=== PATIENT | female | born 1960 | race African-American/Black ===

== ENCOUNTER 2023-12-28 17:06 | Inpatient (IN) | payer OTHER ==
[2023-12-28 18:27] VITALS: BMI 21.7
[2023-12-28] MEDS ORDERED: IBUPROFEN 400 MG TABLET (FP) PO PRN (20:17)
[2023-12-28] MEDS ORDERED: NALOXONE HCL (KLOXXADO) 8 MG SPRAY NS PRN (20:17)
[2023-12-28] MEDS ORDERED: LOPERAMIDE HCL 2 MG CAPSULE PO PRN (20:17)
[2023-12-28] MEDS ORDERED: POLYETHYLENE GLYCOL (HEALTHYLAX) 3350 17 GM PACKET PO PRN (20:17)
[2023-12-28] MEDS ORDERED: BISMUTH SUBSALICYLATE 524 MG/30 ML PO PRN (20:17)
[2023-12-28] MEDS ORDERED: BENZONATATE 200 MG CAPSULE PO PRN (20:17)
[2023-12-28] MEDS ORDERED: guaiFENesin 600 MG TABLET.ER (FP) PO PRN (20:17)
[2023-12-28] MEDS ORDERED: BENZOCAINE/MENTHOL (CHLORASEPTIC ) LOZENGE MM PRN (20:17)
[2023-12-28] MEDS ORDERED: NALOXONE HCL 0.4 MG/ML VIAL IM PRN (20:17)
[2023-12-28] MEDS ORDERED: MAGNESIUM HYDROX 2400MG/30ML ORAL SUSPENSION 30 ML CUP PO PRN (20:17)
[2023-12-28] MEDS ORDERED: ACETAMINOPHEN 325 MG TABLET (FP) PO PRN (20:17)
[2023-12-28] MEDS ORDERED: methaDONE HCL 10 MG TABLET (FOR DETOX USE ONLY) ONE (22:57)
[2023-12-28] MEDS: methaDONE HCL 10 MG TABLET (FOR DETOX USE ONLY) PO ONE (23:05)
[2023-12-29] MEDS: THIAMINE 100 MG TABLET PO SCH (01:47)
[2023-12-29] MEDS: MELATONIN 5 MG TABLETS PO SCH (01:47)
[2023-12-29] MEDS: NICOTINE POLACRILEX 2 MG GUM BUC PRN (02:29)
[2023-12-29] MEDS: cloNIDine HCL 0.1 MG TABLET PO PRN (09:59)
[2023-12-29] MEDS: PRENATAL VITAMINS W/ FOLIC ACID TABLET (FP) PO SCH (09:59)
[2023-12-29] MEDS: NICOTINE 14 MG/24 HOURS TOPICAL PATCH TD SCH (09:59)
[2023-12-29 11:45] LABS: HEMATOCRIT 34.9 % (32.4-45.2); HEMOGLOBIN 11.6 GM/dL (10.7-15.3); MCH 28.4 pg (25.7-33.7); MCHC 33.2 g/dl (32.0-36.0); MEAN CELL VOLUME 85.6 fl (80-96); MEAN PLT VOLUME 9.7 fl (7.5-11.1); PLATELET COUNT 220 10^3/uL (134-434); RBC 4.07 M/mm3 (3.60-5.2); RDW 14.5 % (11.6-15.6)
[2023-12-29 11:58] LABS: CHLORIDE 105 mmol/L (98-107); POTASSIUM 4.1 mmol/L (3.5-5.1); SODIUM 138 mmol/L (136-145)
[2023-12-29] MEDS: TOLNAFTATE 1% CREAM 15 GM TUBE TP SCH (12:01)
[2023-12-29 12:21] LABS: CALCIUM 9.5 mg/dL (8.5-10.1); GLUCOSE,RANDOM 92 mg/dL (74-106)
[2023-12-29 12:22] LABS: ALBUMIN 3.7 g/dl (3.4-5.0); ANION GAP 4 mmol/L (4-13); BLOOD UREA NITROGEN 10.6 mg/dL (7-18); CO2 29 mmol/L (21-32)
[2023-12-29 12:24] LABS: BILIRUBIN,TOTAL 0.4 mg/dL (0.2-1)
[2023-12-29 12:25] LABS: ALK PHOS 79 U/L (45-117); CREATININE 0.7 mg/dL (0.55-1.3); SGOT/AST 17 U/L (15-37); SGPT/ALT 21 U/L (13-61)
[2023-12-29] MEDS: ONDANSETRON *ODT* 4 MG TABLET SL PRN (18:33)
[2023-12-30] MEDS: methaDONE HCL 10 MG TABLET (FOR DETOX USE ONLY) PO ONE (10:21)
[2023-12-30] MEDS: MAG HYDROX/AL HYDROX/SIMETH 30 ML UNIT-DOSE CUP PO PRN (10:25)
[2023-12-30] MEDS: IBUPROFEN 600 MG TABLET (FP) PO PRN (19:17)
[2023-12-31] MEDS: TRIMETHOBENZAMIDE HCL 200MG/2ML INJ IM ONE (19:21)
[2023-12-31] MEDS: MELATONIN 5 MG TABLETS PO SCH (22:41)
[2024-01-01] MEDS: methaDONE HCL 10 MG TABLET (FOR DETOX USE ONLY) PO ONE (10:37)
[2024-01-01] MEDS: CYPROHEPTADINE HCL 4 MG TABLET PO SCH (11:30)
[2024-01-01] MEDS: QUEtiapine FUMARATE 25 MG TABLET PO SCH (22:26)
[2024-01-01] MEDS: TRIMETHOBENZAMIDE HCL 200MG/2ML INJ IM ONE (22:53)
[2024-01-02 09:02] VITALS: RESP 18
[2024-01-02 17:04] VITALS: BP 162/63; PULSE 53; TEMP 97.5
== END 2024-01-03 06:30 | disposition short-term general hospital (02) | DRG 897 ==
LOC: YASAS 17:06 → Y3N 12-29 02:04
PROVIDERS: ADMIT Allergy & Immunology; ATTEND Allergy & Immunology
PROC: HZ2ZZZZ Detoxification Services for Substance Abuse Treatment (ICD-10-PCS; principal; 2023-12-29)
DX: F11.23 Opioid dependence with withdrawal (principal); Z59.00 Homelessness unspecified; F17.210 Nicotine dependence, cigarettes, uncomplicated; F32.9 Major depressive disorder, single episode, unspecified; F43.10 Post-traumatic stress disorder, unspecified; G47.00 Insomnia, unspecified; R11.2 Nausea with vomiting, unspecified; Z85.030 Personal history of malignant carcinoid tumor of large intestine; K66.8 Other specified disorders of peritoneum; B35.3 Tinea pedis; B35.1 Tinea unguium; Z56.0 Unemployment, unspecified
CPT/HCPCS: 36415; 73610-TC-LT-FY; 80053; 80305; 80307; 85027; 86780; 93005; 93010; Q0162

== ENCOUNTER 2024-01-02 20:04 | Inpatient (IN) | payer OTHER ==
[2024-01-02] MEDS ORDERED: FAMOTIDINE 20 MG/50 ML IVPB 20 MG/50 ML MG IVPB ONE (21:25)
[2024-01-02] MEDS ORDERED: ONDANSETRON 4 MG/2 ML VIAL ONE (21:25)
[2024-01-02 21:55] LABS: BASO % 0.4 % (0-2.0); EOS % 0.1 % (0-4.5); HEMATOCRIT 44.2 % (32.4-45.2); HEMOGLOBIN 15.1 GM/dL (10.7-15.3); LYMPH % 14.9 % (8-40); MCH 29.2 pg (25.7-33.7); MCHC 34.1 g/dl (32.0-36.0); MEAN CELL VOLUME 85.5 fl (80-96); MEAN PLT VOLUME 9.3 fl (7.5-11.1); MONO % 5.4 % (3.8-10.2); NEUT % 79.2 % (42.8-82.8); PLATELET COUNT 218 10^3/uL (134-434); RBC 5.16 M/mm3 (3.60-5.2); RDW 14.2 % (11.6-15.6); WHITE BLOOD COUNT 8.5 K/mm3 (4.0-10.0)
[2024-01-02] MEDS: ONDANSETRON 4 MG/2 ML VIAL IVPUSH ONE (22:07)
[2024-01-02] MEDS: FAMOTIDINE 20 MG/50 ML IVPB 20 MG/50 ML MG IVPB ONE (22:07)
[2024-01-02 22:08] LABS: POTASSIUM 4.4 mmol/L (3.5-5.1)
[2024-01-02 22:11] LABS: ALBUMIN 4.2 g/dl (3.4-5.0); CALCIUM 10.1 mg/dL (8.5-10.1); MAGNESIUM 2.3 mg/dL (1.8-2.4)
[2024-01-02 22:16] LABS: BILIRUBIN,TOTAL 0.9 mg/dL (0.2-1); TOT PROT 9.7 g/dl (6.4-8.2)
[2024-01-02] MEDS: DEXTROSE 5%-NORMAL SALINE 1,000 ML IV SCH (22:20)
[2024-01-03] MEDS ORDERED: ONDANSETRON 4 MG/2 ML VIAL ONE (00:47)
[2024-01-03] MEDS: ONDANSETRON 4 MG/2 ML VIAL IVPUSH ONE (00:52)
[2024-01-03] MEDS ORDERED: MELATONIN 5 MG TABLETS ONE (02:44)
[2024-01-03] MEDS: MELATONIN 5 MG TABLETS PO ONE (02:51)
[2024-01-03] MEDS ORDERED: ONDANSETRON 4 MG/2 ML VIAL IVPUSH PRN (03:38)
[2024-01-03 06:11] VITALS: BMI 20.8
[2024-01-03 06:56] VITALS: RESP 18
[2024-01-03 08:12] LABS: POTASSIUM 4.1 mmol/L (3.5-5.1)
[2024-01-03 08:14] LABS: CALCIUM 9.4 mg/dL (8.5-10.1)
[2024-01-03 08:15] LABS: ALBUMIN 3.5 g/dl (3.4-5.0); MAGNESIUM 2.2 mg/dL (1.8-2.4)
[2024-01-03 08:18] LABS: CREATININE 0.8 mg/dL (0.55-1.3); PHOSPHOROUS 3.6 mg/dL (2.5-4.9)
[2024-01-03 08:19] LABS: BILIRUBIN,TOTAL 0.8 mg/dL (0.2-1); TOT PROT 8.4 g/dl (6.4-8.2)
[2024-01-03 08:29] LABS: HEMATOCRIT 42.4 % (32.4-45.2); HEMOGLOBIN 14.2 GM/dL (10.7-15.3); MCH 28.6 pg (25.7-33.7); MCHC 33.5 g/dl (32.0-36.0); MEAN CELL VOLUME 85.6 fl (80-96); MEAN PLT VOLUME 10.9 fl (7.5-11.1); PLATELET COUNT 194 10^3/uL (134-434); RBC 4.95 M/mm3 (3.60-5.2); RDW 14.5 % (11.6-15.6); WHITE BLOOD COUNT 7.5 K/mm3 (4.0-10.0)
[2024-01-03] MEDS: LACTATED RINGERS SOLUTION 1,000 ML/1,000 ML INFUS.BAG IV SCH (09:50)
[2024-01-03] MEDS ORDERED: PANTOPRAZOLE SODIUM 40 MG VIAL IVPUSH SCH (10:00)
[2024-01-03 10:43] LABS: PHENCYCLIDINE,URINE NEGATIVE (NEGATIVE)
[2024-01-03 10:44] LABS: COCAINE, UR NEGATIVE (NEGATIVE); METHADONE, UR POSITIVE (NEGATIVE); OPIATES, URI NEGATIVE (NEGATIVE); URINE AMPHETAMINES NEGATIVE (NEGATIVE); URINE BARBITURATES NEGATIVE (NEGATIVE); URINE BENZODIAZEPINES NEGATIVE (NEGATIVE)
[2024-01-03 11:07] LABS: EPI CELLS 8 /uL (0-25.1); HYALINE CASTS 0 /uL (0-3.1); PH,URINE 6.5 (5.0-8.0); URINE APPEARANCE CLEAR; URINE BACTERIA 248 /uL (0-1359); URINE BILIRUBIN NEGATIVE (NEGATIVE); URINE COLOR YELLOW; URINE GLUCOSE (UA) NEGATIVE (NEGATIVE); URINE KETONE NEGATIVE (NEGATIVE); URINE LEUK ESTERASE 1+ (NEGATIVE); URINE NITRITE NEGATIVE (NEGATIVE); URINE PROTEIN 3+ (NEGATIVE); URINE RBC 58 /uL (0-23.9); URINE UROBILINOGEN 0.2 mg/dL (0.2-1.0); URINE WBC 238 /uL (0-25.8)
[2024-01-03] MEDS: NICOTINE 21 MG/24 HOURS TOPICAL PATCH TD SCH (12:27)
[2024-01-03] MEDS: ENOXAPARIN NA (PORCINE) 40 MG/0.4 ML DISP.SYRIN SQ SCH (12:27)
[2024-01-03] MEDS: FAMOTIDINE 20 MG TABLET PO SCH (12:27)
[2024-01-03 12:45] LABS: HIV INTERPRETATION NEGATIVE (NEGATIVE)
[2024-01-03] MEDS: traMADol HCL 50 MG TABLET PO ONE (14:07)
[2024-01-03] MEDS: ACETAMINOPHEN 1000 MG/100 ML BAG IVPB ONE (14:08)
[2024-01-03] MEDS: LIDOCAINE 5% TOPICAL PATCH TP SCH (14:08)
[2024-01-03] MEDS: QUEtiapine FUMARATE 25 MG TABLET PO SCH (21:25)
[2024-01-03] MEDS: LIDOCAINE PATCH REMOVAL MC SCH (21:35)
[2024-01-04 06:21] VITALS: BP 147/72; PULSE 62; TEMP 98.2
== END 2024-01-04 11:45 | disposition other institution (70) | DRG 392 ==
LOC: JER 20:04 → JERBED 01-03 02:30 → OBSVTOIN 01-03 03:59 → J7W 01-03 04:50
PROVIDERS: ADMIT Internal Medicine; ATTEND Nurse Practitioner Acute Care
DX: K29.70 Gastritis, unspecified, without bleeding (principal); F11.23 Opioid dependence with withdrawal; E44.0 Moderate protein-calorie malnutrition; I16.0 Hypertensive urgency; F43.10 Post-traumatic stress disorder, unspecified; F41.8 Other specified anxiety disorders; R11.2 Nausea with vomiting, unspecified; G47.00 Insomnia, unspecified; F17.200 Nicotine dependence, unspecified, uncomplicated; Z68.20 Body mass index [BMI] 20.0-20.9, adult; K30 Functional dyspepsia; R00.1 Bradycardia, unspecified; Z91.148 Patient's other noncompliance with medication regimen for other reason
CPT/HCPCS: 36415; 74177-TC; 74240-TC-FY; 80053; 80307; 81003; 83690; 83735; 84100; 84439; 84443; 85025; 85027; 87086; 87389; 93005; 93010; 99285-25; G0378